=== PATIENT | female | born 2000 | race Caucasian/White ===

== ENCOUNTER 2020-03-30 08:57 | Outpatient (CLI) | payer OTHER | END 2020-03-30 09:34 | disposition home or self-care (01) | LOC: NUCLEAR 08:57 | PROVIDERS: ATTEND Internal Medicine Cardiovascular Disease | DX: I42.8 Other cardiomyopathies (principal); I42.2 Other hypertrophic cardiomyopathy; I49.8 Other specified cardiac arrhythmias; R55 Syncope and collapse ==